=== PATIENT | female | born 1955 ===

== ENCOUNTER 2018-09-11 07:25 | Day surgery (SDC) | payer OTHER ==
[~2018-09-11 07:25] MED LIST: CODACE30 PO; [UNRECOGNIZED DRUG - REMARK]
== END 2018-09-11 23:21 | disposition home or self-care (01) ==
LOC: MOI US 07:25
PROC: 0HBU3ZX Excision of Left Breast, Percutaneous Approach, Diagnostic (ICD-10-PCS; principal; 2018-09-11)
DX: C50.212 Malignant neoplasm of upper-inner quadrant of left female breast (principal); Z17.1 Estrogen receptor negative status [ER-]
CPT/HCPCS: 19083; 77065; 88305; 88342; 88360; A4648; G0279

== ENCOUNTER 2025-01-05 15:44 | Emergency (ER) | payer OTHER ==
[~2025-01-05] VITALS: Ht 160 cm; Wt 110.2 kg
[2025-01-05 17:09] LABS: Prothrombin Time Results 11.1 Sec (9.7-11.5)
[2025-01-05 17:11] LABS: BASOPHILS ABSOLUTE AUTO 0.05 K/mm3 (0.00-0.23); BASOPHILS PERCENT AUTO 1 % (0-2); EOSINOPHILS ABSOLUTE AUTO 0.21 K/mm3 (0.00-0.68); EOSINOPHILS PERCENT AUTO 3 % (0-6); Hematocrit 38.8 % (33.0-51.0); Hemoglobin 13.8 g/dL (11.5-16.0); IMMATURE GRAN ABSOLUTE AUTO 0.06 K/mm3 (0.00-0.10); IMMATURE GRAN PERCENT AUTO 1 % (0-1); LYMPHOCYTES ABSOLUTE AUTO 1.93 K/mm3 (0.84-5.20); LYMPHOCYTES PERCENT AUTO 27 % (21-46); MONOCYTES ABSOLUTE AUTO 0.40 K/mm3 (0.16-1.47); MONOCYTES PERCENT AUTO 6 % (4-13); Mean Corpuscular HGB Conc 35.6 g/dL (31.5-36.5); Mean Corpuscular Volume 87 fL (80-100); NEUTROPHILS ABSOLUTE AUTO 4.61 K/mm3 (1.96-9.15); NEUTROPHILS PERCENT AUTO 64 % (41-73); NRBC ABSOLUTE 0.00 K/mm3 (0.00-0.02); NRBC Auto 0.0 /100 WBC (0.0-0.2); RDW Coefficient Variation 11.9 % (11.7-14.2); RDW Standard Deviation 38.0 fL (35.1-46.3)
[2025-01-05 17:35] LABS: Platelet Count 238 K/mm3 (150-400)
[2025-01-05] MEDS ORDERED: XARELTO1 EAC1 PO (19:57)
[2025-01-05 20:36] VITALS: BP 118/65
== END 2025-01-05 20:32 | disposition home or self-care (01) ==
LOC: ER 15:44
PROVIDERS: Student in an Organized Health Care Education/Training Program
DX: I82.411 Acute embolism and thrombosis of right femoral vein (principal); I10 Essential (primary) hypertension; E11.9 Type 2 diabetes mellitus without complications; Z88.2 Allergy status to sulfonamides
CPT/HCPCS: 85025; 85610; 99283; A9270